=== PATIENT | female | born 1975 | race Hispanic/Latino ===

== ENCOUNTER 2022-06-27 17:07 | Emergency (ER) | payer BC, SELFPAY ==
--- NOTE | 2022-06-27 17:18 | ED.EYEPROB ---
HPI - Eye Problem General Chief complaint: Eye Problems Stated complaint: Left Eye Pain Time Seen by Provider: 06/27/22 17:37 Source: patient and RN notes reviewed Mode of arrival: ambulatory Limitations: language barrier (Iraqi speaking, technology applications teacher used) History of Present Illness HPI Narrative: 47-year-old female presents with concern for left eye pain and swelling. She reports history of surgery for a blocked tear duct. Reports recurrent infections. Reports several day history of redness, pain, purulent drainage. She denies any vision changes. chief complaint: eye pain Related Data Allergies Allergy/AdvReac Type Severity Reaction Status Date / Time Penicillins Allergy Rash Verified 06/27/22 17:30 Review of Systems Review of Systems: CONSTITUTIONAL: Denies malaise, chills, sweats, or fever. EYES: Denies visual changes. Reports swelling, tenderness, purulent drainage in the tear duct of the left eye ENT: Denies rhinorrhea, congestion, sinus pain, otalgia or sore throat. SKIN: Denies rash or itching. NEUROLOGIC: Denies numbness, weakness, or headache. PSYCHIATRIC: Denies anxiety or depression. All systems reviewed & are unremarkable except as noted in HPI and below PMFSH Comments At time of signature, agree with nursing past medical, surgical, social and family history. There is no relevant family history pertinent to the presenting complaint Exam Narrative: GENERAL: Well-appearing, well-nourished, and in no acute distress. HEAD: Normocephalic, atraumatic. EYES: PERRLA, sclera clear, and EOMI. No nystagmus. Left conjunctivae mildly injected. Approximately use 0.75cm erythematous nodule noted above the left tear duct with pinpoint amount of green purulent drainage, fluctuant. Upper and lower eyelid unremarkable, no periorbital edema noted ENT: Nares clear, turbinates pink, no rhinorrhea or epistaxis. Mucous membranes moist. TM pearly brown with sharp light reflex bilaterally; no tragal tenderness. NECK: Supple. CHEST: No respiratory distress. Speaks in full sentences. HEART: Regular rate and rhythm. SKIN: Warm, dry, no visible rash. NEURO: Alert and oriented x3. PSYCH: Normal mood and affect Course Course Emergency Course: Patient was advised to call her software specialist for further evaluation after starting antibiotic Patient is aware of diagnosis, understands and agrees to treatment plan. Anticipatory guidance given. Patient agrees to follow-up as directed and is aware of reasons to seek care at the emergency department. Portions of this record may have been created with voice recognition software Level of Care: Express Care Visit Vital Signs Vital signs: Vital Signs Temperature 98.2 F 06/27/22 17:21 Pulse Rate 79 06/27/22 17:21 Respiratory Rate 18 06/27/22 17:21 Blood Pressure 142/73 H 06/27/22 17:21 Pulse Oximetry 100 06/27/22 17:21 Oxygen Delivery Room Air 06/27/22 17:21 Temperature 98.2 F 06/27/22 17:21 Pulse Rate 79 06/27/22 17:21 Respiratory Rate 18 06/27/22 17:21 Blood Pressure 142/73 H 06/27/22 17:21 Pulse Oximetry 100 06/27/22 17:21 Oxygen Delivery Room Air 06/27/22 17:21 Reviewed. MDM - Eye Problem MDM Narrative Medical decision making narrative: Consideration of the following conditions may be warranted for the presenting problem, they are not final diagnoses: Bacterial conjunctivitis, allergic conjunctivitis, viral conjunctivitis, foreign body, blepharitis, chalazion, to Floyd obstruction and infection, hordeolum, corneal abrasion, preseptal cellulitis, orbital cellulitis. No evidence of proptosis, ophthalmoplegia, vision loss, pain with eye movement. Exam findings show no acute concerns or changes; patient is non-toxic appearing and is in no distress. Patient is appropriate for outpatient treatment and follow-up. Critical Care Time Critical Care Time Critical Care Time: No Discharge Plan Discharge Clinical Impression: Infection of la
[2022-06-27 17:21] VITALS: BP 142/73; PULSE 79; RESP 18; TEMP 36.8; O2SAT 100
== END 2022-06-27 18:07 | disposition home or self-care (01) ==
PROVIDERS: Emergency Provider Nurse Practitioner; PCP Registered Nurse
DX: H04.302 Unspecified dacryocystitis of left lacrimal passage (principal)
CPT/HCPCS: 99213; G0463

== ENCOUNTER 2023-04-21 15:56 | Emergency (ER) | payer BC, SELFPAY ==
[2023-04-21 16:12] VITALS: BP 131/70; PULSE 69; RESP 16; TEMP 37.6; O2SAT 100
--- NOTE | 2023-04-21 16:23 | ED.EYEPROB ---
HPI - Eye Problem General Chief complaint: Eye Problems Stated complaint: left eye swollen Time Seen by Provider: 04/21/23 16:23 Source: patient Mode of arrival: ambulatory Limitations: no limitations History of Present Illness HPI Narrative: 48 yo F presents with c/o L eye pain and redness. hx of blocked tear duct. has had surgery in the past that did not help. has seen an airworthiness safety inspector in the past and gives a medrol dosepak. Pt states pain worse this time. has appt with eye doctor tomorrow. All systems reviewed and negative except as noted above. Related Data Allergies Allergy/AdvReac Type Severity Reaction Status Date / Time Penicillins Allergy Rash Verified 04/21/23 16:16 Review of Systems Review of Systems: CONSTITUTIONAL: Denies fever, chills, or sweats. EYES: Denies visual changes. L eye blocked tear duct with surround erythema. ENT: Denies rhinorrhea, congestion, sore throat, or otalgia. CARDIOVASCULAR: Denies chest pain, palpitations, or edema. RESPIRATORY: Denies cough or dyspnea. GASTROINTESTINAL: Denies abdominal pain, nausea, vomiting, or diarrhea. GENITOURINARY: Denies dysuria or hematuria. SKIN: Denies rash or itching. swelling and erythema, warmth, tender on palpation to L nasolabial fold. no fluctuance. MUSCULOSKELETAL: Denies back pain, joint pain, or myalgia. NEUROLOGIC: Denies headache, numbness, or weakness. PSYCHIATRIC: Denies anxiety or depression. All other systems reviewed are negative, except as documented in HPI. Course Course Level of Care: Express Care Visit Vital Signs Vital signs: Vital Signs Temperature 37.6 C H 04/21/23 16:12 Pulse Rate 69 04/21/23 16:12 Respiratory Rate 16 04/21/23 16:12 Blood Pressure 131/70 04/21/23 16:12 Pulse Oximetry 100 04/21/23 16:12 Oxygen Delivery Room Air 04/21/23 16:12 Temperature 37.6 C H 04/21/23 16:12 Pulse Rate 69 04/21/23 16:12 Respiratory Rate 16 04/21/23 16:12 Blood Pressure 131/70 04/21/23 16:12 Pulse Oximetry 100 04/21/23 16:12 Oxygen Delivery Room Air 04/21/23 16:12 reviewed MDM - Eye Problem MDM Narrative Medical decision making narrative: Patient is aware of diagnosis, understands and agrees to treatment plan. Anticipatory guidance given. Patient agrees to follow-up as directed and is aware of reasons to seek care at the emergency department. Portions of this record may have been created with voice recognition software prescribing cephalexin, concern for facial cellulitis. Discharge Plan Discharge Clinical Impression: Cellulitis of face, Blocked tear duct Patient Disposition: Home, Self-Care Condition: Stable Instructions: Antibiotic Form, Cellulitis (ED), Blocked Tear Duct (ED) Additional Instructions: Take medications as prescribed. Take tylenol or motrin as needed for pain. Follow up at scheduled eye appointment tomorrow. For any worsening of symptoms go to the ER. Prescriptions: New cephalexin 500 mg capsule 500 mg PO QID 7 Days Qty: 28 0RF methylprednisolone [Medrol (Yehuda)] 4 mg tablets,dose pack See Rx Instructions PO .COMPLEX Qty: 21 0RF Rx Instructions: orally per package directions Follow-up/Referrals: Orquidea,GALILEA Driscoll [Primary Care Provider] - Time of Disposition: 16:35
== END 2023-04-21 17:24 | disposition home or self-care (01) ==
PROVIDERS: Emergency Provider Nurse Practitioner Family; PCP Registered Nurse
DX: L03.211 Cellulitis of face (principal)
CPT/HCPCS: 99213; G0463

== ENCOUNTER 2023-06-09 15:59 | Emergency (ER) | payer BC, SELFPAY ==
[2023-06-09 16:14] VITALS: BP 126/73; PULSE 76; RESP 16; TEMP 37.3; O2SAT 99
--- NOTE | 2023-06-09 17:21 | ED.SKABFB ---
HPI - Skin/Abscess/Foreign Bdy General Chief complaint: Skin/Abscess/Foreign Body Stated complaint: lump under left eye Time Seen by Provider: 06/09/23 17:11 Source: patient, family (daughter is interpreting. ) and RN notes reviewed Mode of arrival: ambulatory Limitations: no limitations History of Present Illness HPI narrative: Patient presents today complaining of a lump to left lower eyelid that developed 2 days ago and has been worsening ever since. This is a recurrent issue for patient. It had occurred back in March and she was [facility]. She was given Keflex and a Medrol Dosepak, which did help improve her symptoms. She was subsequently seen at her eye doctor and was told that it may be clogged tear duct or a cyst. She was seen 2 weeks ago and was told to continue warm compresses. She called today and was not able to get in to be seen. She currently rates her pain 5/10. She has not tried any [id number] medication for symptoms prior to arrival. Related Data Allergies Allergy/AdvReac Type Severity Reaction Status Date / Time Penicillins Allergy Rash Verified 06/09/23 16:23 Review of Systems Review of Systems: CONSTITUTIONAL: Denies body aches, fever, chills, or sweats. EYES: Denies visual changes, redness, or discharge. ENT: Denies rhinorrhea, congestion, sore throat, or otalgia. CARDIOVASCULAR: Denies chest pain, palpitations, or edema. RESPIRATORY: Denies cough or dyspnea. GASTROINTESTINAL: Denies abdominal pain, nausea, vomiting, or diarrhea. GENITOURINARY: Denies dysuria or hematuria. SKIN: + lump to left lower eyelid MUSCULOSKELETAL: Denies back pain, joint pain, or myalgia. NEUROLOGIC: Denies headache, numbness, tingling, or weakness. PSYCH: Denies depression or anxiety. [facility] Past Medical History Medical History (Updated 06/09/23 @ 17:26 by Gayatri Carpenter, SENIOR CYBER SECURITY ANALYST, ) History of breast cancer Comments At time of signature, I have reviewed and agree with nursing past medical, surgical, social and family history unless otherwise noted. Please see nursing chart for further information. There is no relevant family history pertinent to the presenting complaint Exam Narrative: GENERAL: Well-appearing, well-nourished, and in no acute distress. HEAD: Normocephalic, atraumatic. EYES: EOMI. PERRL. Conjunctivae normal. Left lower eyelid has a pea-sized firm nodule to the inner canthus. Tenderness extends from the nodule downward and laterally. ENT: Mucous membranes pink and moist. NECK: Normal AROM. CHEST: No respiratory distress. EXTREMITIES: Normal range of motion. No edema. SKIN: Warm, dry, no rash. Capillary refill normal. Normal skin turgor. NEURO: No focal deficits. Alert and oriented x3. Gait steady. PSYCH: Normal affect. No signs of depression or anxiety. Course Course Level of Care: Express Care Visit Vital Signs Vital signs: Vital Signs Temperature 99.1 F 06/09/23 16:14 Pulse Rate 76 06/09/23 16:14 Respiratory Rate 16 06/09/23 16:14 Blood Pressure 126/73 06/09/23 16:14 Pulse Oximetry 99 06/09/23 16:14 Oxygen Delivery Room Air 06/09/23 16:14 Temperature 99.1 F 06/09/23 16:14 Pulse Rate 76 06/09/23 16:14 Respiratory Rate 16 06/09/23 16:14 Blood Pressure 126/73 06/09/23 16:14 Pulse Oximetry 99 06/09/23 16:14 Oxygen Delivery Room Air 06/09/23 16:14 Reviewed MDM - Skin/Abscess/Foreign Bdy MDM Narrative Medical decision making narrative: Will treat patient with Keflex and prednisone. Instructed the patient and daughter to call eye doctor tomorrow to schedule a follow-up visit. They agreed to plan. Anticipatory guidance given. Differential Diagnosis Differential diagnosis: Likely abscess of skin or subcutaneous tissue, cellulitis and other (Cyst, blocked tear duct) Critical Care Time Critical Care Time Critical Care Time: No Discharge Plan Discharge Clinical Impression: Eyelid abnormality
== END 2023-06-09 17:29 | disposition home or self-care (01) ==
PROVIDERS: Emergency Provider Nurse Practitioner; PCP Registered Nurse
DX: H02.9 Unspecified disorder of eyelid (principal); Z85.3 Personal history of malignant neoplasm of breast; Z92.21 Personal history of antineoplastic chemotherapy; Z92.3 Personal history of irradiation
CPT/HCPCS: 99213; G0463

== ENCOUNTER 2024-06-04 08:32 | Emergency (ER) | payer BC, SELFPAY ==
[2024-06-04 08:44] VITALS: BP 113/72; PULSE 64; RESP 20; TEMP 36.6; O2SAT 99
--- NOTE | 2024-06-04 08:53 | ED_ITS ---
HPI - URI/Sore Throat General Chief Complaint: Upper Respiratory Infection Stated Complaint: Cough Time Seen by Provider: 06/04/24 08:53 Source: patient Mode of arrival: ambulatory Limitations: no limitations History of Present Illness HPI Narrative: 49-year-old female presents with complaint of cough, chest congestion for 5 days. Reports low-grade fever. Reports pain to chest when taking deep breath. Some shortness of breath with exertion. No history of asthma, COPD. Does not smoke. All systems reviewed and negative except as noted above. Related Data Allergies Allergy/AdvReac Type Severity Reaction Status Date / Time Penicillins Allergy Rash Verified 06/04/24 08:39 Review of Systems Review of Systems: CONSTITUTIONAL: Denies fever, chills, or sweats. reports fatigue. EYES: Denies visual changes, redness, or discharge. ENT: Reports rhinorrhea, congestion. Denies sore throat, or otalgia. CARDIOVASCULAR: Denies chest pain, palpitations, or edema. RESPIRATORY: Reports cough and dyspnea with exertion. GASTROINTESTINAL: Denies abdominal pain, nausea, vomiting, or diarrhea. GENITOURINARY: Denies dysuria or hematuria. SKIN: Denies rash or itching. MUSCULOSKELETAL: Denies back pain, joint pain, or myalgia. NEUROLOGIC: Denies headache, numbness, or weakness. PSYCHIATRIC: Denies anxiety or depression. All other systems reviewed are negative, except as documented in HPI. [facility] Past Medical History Medical History (Updated 06/04/24 @ 09:01 by Jenna Blank NP) History of breast cancer Comments At time of signature, agree with nursing past medical, surgical, social and family history. There is no relevant family history pertinent to the presenting complaint. Exam Narrative: GENERAL: This is a well-nourished, well-developed patient, in no apparent distress. HEAD: normocephalic, atraumatic. EYES: PERRL. Sclera clear/white. Vision is grossly intact. EARS: External ears normal, auditory canals clear and without drainage, TMs normal without perforation. Hearing grossly intact. NOSE: External nose normal with no obvious nasal discharge, nares without redness, no rhinorrhea. THROAT: Mucous membranes moist, posterior pharynx clear. NECK: Neck supple, non-tender without lymphadenopathy, masses or thyromegaly. CARDIOVASCULAR: Regular rate and rhythm without murmurs, gallops, or rubs. RESPIRATORY: very mild wheeze on expiration to upper lung montemayor Otherwise clear. Breath sounds equal bilaterally. No rales, or rhonchi. SKIN: warm, Dry, intact with no suspicious lesions or rash, good texture and turgor. NEURO: awake, alert, and oriented to person, place and time. There were no obvious focal neurologic abnormalities. EXTREMITIES: No joint tenderness, effusion, or edema noted. No calf tenderness. Negative Homans sign bilaterally. BACK: Nontender without deformity. No CVA tenderness. Course Course Level of Care: Express Care Visit Vital Signs Vital signs: Vital Signs Temperature 36.6 C 06/04/24 08:44 Pulse Rate 64 06/04/24 08:44 Respiratory Rate 20 06/04/24 08:44 Blood Pressure 113/72 06/04/24 08:44 Pulse Oximetry 99 06/04/24 08:44 Oxygen Delivery Room Air 06/04/24 08:44 Temperature 36.6 C 06/04/24 08:44 Pulse Rate 64 06/04/24 08:55 Respiratory Rate 20 06/04/24 08:55 Blood Pressure 113/72 06/04/24 08:44 Pulse Oximetry 99 06/04/24 08:55 Oxygen Delivery Room Air 06/04/24 08:44 Reviewed MDM - URI/Sore Throat MDM Narrative Medical decision making narrative: Patient is aware of diagnosis, understands and agrees to treatment plan. Anticipatory guidance given. Patient agrees to follow-up as directed and is aware of reasons to seek care at the emergency department. Portions of this record may have been created with voice recognition software will treat patient with antibiotic due to exam findings, symptoms. Patient agrees with plan of care. Differential Diagnosis Differential diagnosis: Likely upper respiratory infection, viral infection and bronchitis Discharge Plan Discharge Clinical Impression: Acute bronchitis Qualifiers: Bronchitis organism: unspecified organism Qualified Code(s): J20.9 - Acute bronchitis, unspecified Patient Disposition: Home, Self-Care Condition: Stable Instructions: Antibiotic Form, Acute Bronchitis (ED) Additional Instructions: Take medications as prescribed. Take [id number] Mucinex as directed on packaging. Drink at least 64 oz of water a day. Follow-up with your primary care physician if symptoms are not improving. Prescriptions: New doxycycline hyclate 100 mg capsule 100 mg PO BID 7 Days Qty: 14 0RF benzonatate 200 mg capsule 200 mg PO TID PRN (Reason: cough) Qty: 20 0RF methylprednisolone [Medrol (Yehuda)] 4 mg tablets,dose pack See Rx Instructions PO .COMPLEX Qty: 21 0RF Rx Instructions: orally per package directions albuterol sulfate 90 mcg/actuation HFA aerosol inhaler 2 puff inhalation Q4-6H PRN (Reason: shortness of breath or wheezing) Qty: 8.5 0RF (DME) Aerochamber Plus Z Stat Spacer See Rx Instructions .Route Qty: 1 0RF Rx Instructions: As directed Follow-up/Referrals: Orquidea,GALILEA Driscoll [Primary Care Provider] - Time of Disposition: 09:02
[2024-06-04 08:55] VITALS: PULSE 64; RESP 20; O2SAT 99
== END 2024-06-04 09:10 | disposition home or self-care (01) ==
PROVIDERS: Emergency Provider Nurse Practitioner Family; PCP Registered Nurse
DX: J20.9 Acute bronchitis, unspecified (principal); Z85.3 Personal history of malignant neoplasm of breast
CPT/HCPCS: 99213; G0463